=== PATIENT | male | born 1980 | race Caucasian/White ===

== ENCOUNTER 2017-02-24 15:23 | Emergency (ER) | payer BC, OTHER ==
[~2017-02-24] VITALS: Ht 188 cm; Wt 90.7 kg
[~2017-02-24 15:23] MED LIST: IBUP-30 PO; LRT10T PO; NAPR-243 PO; TRM50T PO
--- OUTSIDE RECORDS SUMMARY | 2017-02-24 15:29 | XMS REPORT | Continuity of Care Document ---
Author Author [facility] Organization [facility] Address Unknown Phone Unavailable Allergies Active Description Code Type Severity Reaction Onset Reported/Identified Relationship to Patient Clinical Status Yes No Known Drug Allergies [id number] Drug Allergy Unknown N/ A 11/08/2011 Medications Problems Date Dx Coded Attending Type Code Diagnosis Diagnosed By 11/08/2011 Ot 840.9 11/08/2011 Ot 959.2 11/08/2011 Ot E000.1 11/08/2011 Ot E010.1 11/08/2011 Ot E849.6 11/08/2011 Ot E927.0 11/05/2013 LOYDA KINGSLEY MD Ot 718.01 11/05/2013 LOYDA KINGSLEY MD Ot 959.2 Procedures Results Encounters ACCT No. Visit Date/Time Discharge Status Pt. Type Provider Facility Loc./Unit Complaint [id number] 11/05/2013 08:38:00 2013 09:35:00 DIS Emergency LOYDA KINGSLEY MD [facility] ER [id number] 10/08/2014 16:27:00 Document Registration
[2017-02-24] MEDS ORDERED: HYDROcodone/APAP 10 MG/325 MG (LORTAB) TAB PO STA (16:03)
--- NOTE | 2017-02-24 16:06 | ED Lower Extremity ---
General Chief Complaint: Lower Extremity Stated Complaint: LEFT KNEE INJ AT WORK Nursing Triage Note: PT CO OF L KNEE PAIN Nursing Sepsis Screen: No Definite Risk Source: patient Exam Limitations: no limitations History of Present Illness Time seen by provider: 16:06 Initial Comments 36 year old male patient presents to the emergency department with complaints of left knee pain after stepping into a hole at work. States he stepped off of a motor he was working on and stepped into a hole twisting the left knee. Reports falling onto the left hip. Denies hitting his head or loss of consciousness. Denies neck or back pain. Unable to bear weight on the LLE. Location Injury Occurred: work Onset: this afternoon Pain/Injury Location: left knee Method of Injury: fell Modifying Factors: Worse With Movement Allergies and Home Medications Allergies Coded Allergies: No Known Drug Allergies (Unverified , 11/08/11) Home Medications No Active Prescriptions or Reported Meds Constitutional: no symptoms reported Respiratory: no symptoms reported Cardiovascular: no symptoms reported Gastrointestinal: no symptoms reported Musculoskeletal: see HPI, No back pain, joint pain, joint swelling (left knee) , No neck pain Skin: No change in color, No lumps Psychiatric/Neurological: Denies Headache, Denies Numbness, Denies Paresthesia , Denies Tingling, Denies Weakness All Other Systems Reviewed Negative Unless Noted: Yes (Negative excepted noted.) Past Fkxbcnc-Kklcpf-Vtzbhl Hx Patient Social History Alcohol Use: Denies Use Recreational Drug Use: No Smoking Status: Current Someday Smoker Type Used: Cigarettes, Smokeless Tobacco Recent Foreign Travel: No Contact w/Someone Who Travel: No Recent Infectious Disease Expo: No Recent Hopitalizations: No Physical Abuse: No Sexual Abuse: No Immunizations Up To Date Tetanus Booster (TDap): Less than 5yrs Surgeries History of Surgeries: No Respiratory History of Respiratory Disorde: No Cardiovascular History of Cardiac Disorders: No Neurological History of Neurological Disord: No Reproductive System Hx Reproductive Disorders: No Sexually Transmitted Disease: No HIV/AIDS: No Gastrointestinal History of Gastrointestinal Di: No Musculoskeletal History of Musculoskeletal Dis: Yes (states previous injury to r shoulder, previous fracture to R elbow) Musculoskeletal Disorders: Fractures Endocrine History of Endocrine Disorders: No Cancer History of Cancer: No Psychosocial History of Psychiatric Problem: No Suicide Risk Score: 0 Integumentary History of Skin or Integumenta: No Blood Transfusions History of Blood Disorders: No Adverse Reaction to a Blood Tr: No Reviewed Nursing Assessment Reviewed/Agree w Nursing PMH: Yes Family Medical History Significant Family History: No Pertinent Family Hx Physical Exam Vital Signs Vital Sign - Last 12Hours 02/24/17 15:25 Temp 97.4 Pulse 56 Resp 18 B/P (MAP) 147/97 Pulse Ox 99 Capillary Refill : Less Than 3 Seconds General Appearance: WD/WN, no apparent distress Cardiovascular: normal peripheral pulses, regular rate, rhythm, no edema, no murmur Respiratory: lungs clear, normal breath sounds, no respiratory distress, no accessory muscle use Gastrointestinal: non tender, soft, No distended Hips: bilateral hip non-tender, bilateral hip normal inspection, bilateral hip normal range of motion, bilateral hip no evidence of injury Legs: right leg non-tender, bilateral leg normal inspection, bilateral leg normal range of motion, bilateral leg no evidence of injury, left leg soft tissue tenderness (soft tissue tenderness of the left lateral thigh and hip without bony tenderness, ecchymosis, or swelling. ) Knees: right knee non-tender, right knee normal inspection, right knee normal range of motion, right knee no evidence of injury, left knee bone tenderness ( generalized tenderness with greatest tenderness medially.), left knee joint effusion, left knee pain, left knee soft tissue tenderness, left knee swelling ( mild swelling posteriorly and medial to the patella.) Ankles: bilateral ankle non-tender, bilateral ankle normal inspection, bilateral ankle normal range of motion, bilateral ankle no evidence of injury Feet: bilateral foot non-tender, bilateral foot normal inspection, bilateral foot normal range of motion, bilateral foot no evidence of injury Neurologic/Tendon: normal sensation, normal motor functions, normal tendon functions, responds to pain, no evidence tendon injury Neurologic/Psychiatric: no motor/sensory deficits, alert, normal mood/affect, oriented x 3 Skin: normal color, warm/dry, No ecchymosis Progress/Results/Core Measures Results/Orders My Orders Orders - JUSTINA CHOUDHURY Hydrocodone/Apap 10/325 Tablet (Lortab 1 (02/24/17 16:03) Knee, Left, 3 Views (02/24/17 16:03) Vital Signs/I&O Vital Sign - Last 12Hours 02/24/17 15:25 Temp 97.4 Pulse 56 Resp 18 B/P (MAP) 147/97 Pulse Ox 99 Blood Pressure Mean: 114 Diagnostic Imaging Diagonstic Imaging: Xray Plain Films/CT/US/NM/MRI: knee Comments FINDINGS: No fracture or acute bony abnormality is seen. IMPRESSION: Negative left knee. Dictated on workstation # [id number] Reviewed: Reviewed by Me (radiology report reviewed by me) Departure Impression Impression: Primary Impression: Sprain of knee Qualified Codes: S83.92XA - Sprain of unspecified site of left knee, initial encounter Disposition: HOME, SELF-CARE Condition: Improved Departure-Patient Inst. Decision time for Depature: 16:39 Referrals: SELFCLYDE MD (PCP/Family) Primary Care Physician MCKENZIE CARRASCO DO Patient Instructions: Knee Sprain (DC) Add. Discharge Instructions: All discharge instructions reviewed with patient and/or family. Voiced understanding. Medications as instructed. Tylenol Extra Strength over-the- counter as directed for pain. Ibuprofen 800 mg by mouth every 8 hours as needed for pain. Elevate the left knee on pillows. Ice pack for 20 minute intervals as needed for pain for 2-3 days. Scripts Tramadol HCl (Tramadol HCl) 50 Mg Tablet 50 MG PO Q4H Y for PAIN-MODERATE, #14 TAB 0 Refills Prov: JUSTINA CHOUDHURY 02/24/17 JUSTINA CHOUDHURY Feb 24, 2017 16:06
--- NOTE | 2017-02-24 16:31 | Diagnostic Imaging Report ---
INDICATION: Left knee pain. EXAMINATION: AP, oblique and lateral views of the left knee were obtained. FINDINGS: No fracture or acute bony abnormality is seen. IMPRESSION: Negative left knee. Dictated by: Dictated on workstation # [id number]
[2017-02-24] MEDS ORDERED: TRAM50TA2 PO (16:40)
[2017-02-24] MEDS ORDERED: HYDROcodone/APAP 5 MG/325 MG (LORTAB) TAB PO STA (16:53)
[2017-02-24 17:07] VITALS: BP 147/97
== END 2017-02-24 17:07 | disposition home or self-care (01) ==
LOC: EDUNIT# 15:23 → ER 15:26
DX: S83.92XA Sprain of unspecified site of left knee, initial encounter (principal); F17.210 Nicotine dependence, cigarettes, uncomplicated; Z87.81 Personal history of (healed) traumatic fracture; W17.2XXA Fall into hole, initial encounter; Y99.0 Civilian activity done for income or pay
CPT/HCPCS: 73562; 99283

== ENCOUNTER 2018-10-09 09:34 | Emergency (ER) | payer OTHER ==
[~2018-10-09] VITALS: Ht 182.9 cm; Wt 98.0 kg
[~2018-10-09 09:34] MED LIST changes: +TRAM50TA2 PO
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
[2018-10-09] MEDS ORDERED: HYDROcodone/APAP 5 MG/325 MG (LORTAB) TAB PO ONE (10:30)
--- NOTE | 2018-10-09 10:43 | Diagnostic Imaging Report ---
Indication: Knee pain. 4 views were obtained. Findings: The alignment is normal. There is no fracture or dislocation. Soft tissues are unremarkable. Impression: No acute fracture or dislocation. Dictated by: Dictated on workstation # [id number]
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
[2018-10-09] MEDS ORDERED: HYDR-3812 PO (11:21)
[2018-10-09 11:28] VITALS: BP 118/80
--- NOTE | 2018-10-09 11:28 | NUR ---
PT HAS CRUTCHES AT HOME ET DOES NOT WANT OURS.
== END 2018-10-09 11:28 | disposition home or self-care (01) ==
LOC: EDUNIT# 09:34 → ER 09:36
DX: M25.561 Pain in right knee (principal); F17.210 Nicotine dependence, cigarettes, uncomplicated
CPT/HCPCS: 73564

== ENCOUNTER → 2019-07-07 | Outpatient (CLI) | payer OTHER ==
[~2019-07-07] MED LIST changes: +HYDR-3812 PO; -TRAM50TA2 PO
--- NOTE | 2019-07-07 11:27 | Diagnostic Imaging Report ---
EXAMINATION: Magnetic resonance imaging of the right knee without intravenous contrast DATE: July 07, 2019. COMPARISON: Right knee radiographs October 09, 2018. INDICATION: 39-year-old male, right knee pain. TECHNIQUE: Multiplanar, multisequence non contrast enhanced MR imaging was accomplished. FINDINGS: MENISCI: The medial meniscus is intact. The lateral meniscus is intact. LIGAMENTS AND TENDONS: The anterior and posterior cruciate ligaments are intact. The medial collateral ligament is intact. The iliotibial band, mid third lateral capsular ligament, fibular collateral ligament, biceps femoris tendon and conjoined tendon are intact. The quadriceps tendon and patella ligament are intact. JOINT: There is a 4 mm wide cartilage flap the level of the bone cartilage interface involving the medial patellar facet with mild underlying degenerative related subchondral edema. The additional patellar cartilage is intact. There is no identified surface cartilage defect of the femoral trochlea. There is some sentinel alteration of the cartilage of the femoral trochlea which potentially could correlate with chondromalacia. The medial and lateral compartment cartilage is grossly intact. There is no knee joint effusion, prominent synovitis, or intra-articular body. BONE: The additional bone marrow signal is unremarkable. Specifically, negative for fracture, osteomyelitis, osteonecrosis, or marrow replacing process. BURSAE AND SOFT TISSUES: There is no Green's cyst. IMPRESSION: 1. Intact menisci and cruciate ligaments. Additional ligaments and tendons are intact. 2. 4 mm wide cartilage flap at the bone cartilage interface involving the medial patellar facet with mild underlying degenerative related subchondral edema. Question of chondromalacia of the femoral trochlear cartilage. The additional articular cartilage is grossly intact. No knee joint effusion. 3. No acute fracture, bone contusion, stress reaction, or evidence of osteonecrosis. Dictated by: Dictated on workstation # [id number]
== END ==
LOC: RAD 10:15
PROVIDERS: ATTEND Family Medicine
DX: M25.561 Pain in right knee (principal)
CPT/HCPCS: 73721

== ENCOUNTER → 2020-03-18 | Outpatient (CLI) | payer OTHER ==
[~2020-03-18] MED LIST changes: +ACHD5005 PO; +CATHETER FLUSH 10 ML SYR IV PRN; -HYDR-3812 PO
[2020-03-18 09:54] VITALS: BP 118/84
--- NOTE | 2020-03-18 12:40 | Cardiology Stress Test Report ---
Stress Test Report Date of Procedure/Referring: Date of Procedure: Mar 18, 2020 PCP SelfPasha MD Admitting Physician Pasha Woodruff MD Indications: Preemployment health Baseline Heart Rate: 54 Baseline Blood Pressure: Blood Pressure Systolic: 118 Blood Pressure Diastolic: 84 Vital Signs Date Time Temp Pulse Resp B/P (MAP) Pulse Ox O2 Delivery O2 Flow Rate FiO2 03/18/20 09:54 54 118/84 (95) 98 Baseline Vital Signs Vital Signs Date Time Temp Pulse Resp B/P (MAP) Pulse Ox O2 Delivery O2 Flow Rate FiO2 03/18/20 09:54 54 118/84 (95) 98 Baseline EKG: Baseline EKG: normal sinus rhythm Summary: After explaining the procedure and details to the patient, he signed the consent and was brought to the stress nuclear laboratory. Patient exercised on standard Gordon protocol, EKG, heart rate and blood pressure were monitored continuously, resting and stress doses of radio tracer were injected, imaging was acquired and reviewed in the short axis, horizontal long axis and vertical long axis views Patient was able to exercise for a total of [9:30 ] minutes on Gordon protocol, METs 11.1 Maximum heart rate 174 Maximum blood pressure 207/89 Stress EKG, Minimal nondiagnostic changes Recovery EKG, Return to baseline TID: 1.12 SSS: 7 SDS: 4 EF: 58 Conclusion: 1. Good exercise tolerance for total of 9 minutes 31 seconds on standard Gordon protocol, 11.1 METs achieving 96 percent of maximum expected heart rate 2. Hypertensive response to exercise with peak blood pressure 207/89 and return to baseline during recovery 3. Minimal nondiagnostic EKG changes with exercise returned to baseline during recovery 4. Diaphragmatic attenuation with mild decreased uptake at the inferoapical segment and the apical segment of the inferolateral wall with mild reversibility, most probably secondary to diaphragmatic attenuation 5. Normal left ventricular size, EF 58 percent MAXIMINO ZUÑIGA MD Mar 18, 2020 12:40
== END ==
LOC: CARD 08:30
PROVIDERS: ATTEND Family Medicine
DX: Z02.1 Encounter for pre-employment examination (principal)
CPT/HCPCS: 78452; 93017; A9502